=== PATIENT | female | born 1970 | race Caucasian/White ===

== ENCOUNTER 2020-10-16 16:29 | Emergency (ER) | payer MEDICAID ==
[~2020-10-16] VITALS: Ht 188 cm; Wt 137.2 kg
[~2020-10-16 16:29] MED LIST: ALBU6.7H9 INH; ALLO300T11 PO; ASPI-612 PO; BECL7.3A INH; BUPR300T86 PO; BUSP5TAB3 PO; CETI-90 PO; CHOL2000 PO; ESTR1.25 PO; HYDR-3965 PO; LEVO75TA PO; LISI40TA13 PO; PROB500T10 PO; ZIPR60CA2 PO
[2020-10-16 16:40] VITALS: BP 147/89
== END 2020-10-16 19:30 | disposition home or self-care (01) ==
LOC: ER 16:30
DX: G97.1 Other reaction to spinal and lumbar puncture (principal); G43.909 Migraine, unspecified, not intractable, without status migrainosus; J45.909 Unspecified asthma, uncomplicated; G89.29 Other chronic pain; M10.9 Gout, unspecified; F41.9 Anxiety disorder, unspecified; F31.9 Bipolar disorder, unspecified; Z90.49 Acquired absence of other specified parts of digestive tract; Z95.0 Presence of cardiac pacemaker; Z88.2 Allergy status to sulfonamides; Z88.5 Allergy status to narcotic agent; Z88.8 Allergy status to other drugs, medicaments and biological substances; Z91.011 Allergy to milk products; Z79.82 Long term (current) use of aspirin; Z79.899 Other long term (current) drug therapy
CPT/HCPCS: 99285; A6258

== ENCOUNTER 2024-01-06 12:16 | Emergency (ER) | payer MEDICAID ==
[~2024-01-06 12:16] MED LIST changes: +ALBU6.7H14 INH; -ALBU6.7H9 INH; +BUPR-564 PO; -BUPR300T86 PO
[2024-01-06 12:26] VITALS: BP 142/84; PULSE 85; RESP 18; TEMP 97.8; O2SAT 95
== END 2024-01-06 19:14 | disposition left against medical advice (07) ==
LOC: ER 12:17
DX: R42 Dizziness and giddiness (principal); H53.9 Unspecified visual disturbance; I10 Essential (primary) hypertension; Z53.21 Procedure and treatment not carried out due to patient leaving prior to being seen by health care provider